=== PATIENT | male | born 1975 | race Two or more races ===

== ENCOUNTER 2019-01-16 21:29 | Emergency (ER) | payer SELFPAY ==
[~2019-01-16] VITALS: Ht 182.9 cm; Wt 89.8 kg
[~2019-01-16 21:29] MED LIST: NKMED; NORCO 5-325 TA1 EACH PO
[2019-01-16 21:55] VITALS: BP 133/77
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
[2019-01-16] MEDS ORDERED: IBUPROFEN600 MG ORAL (22:13)
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
--- NOTE | 2019-01-16 22:56 | NUR ---
ED Nurse Note: Pain score now 2 pain improved following analgesic.
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
--- NOTE | 2019-01-16 23:14 | NUR ---
ER DISCHARGE NOTE: Patient is cleared to be discharged per ERMD, pt is aox4, on room air, with stable vital signs. pt was given dc and prescription instructions, pt was able to verbalize understanding, pt id band removed without complications. pt is able to ambulate with steady gait. pt took all belongings.
[2019-01-16 23:15] VITALS: BP 133/77
== END 2019-01-16 23:16 | disposition home or self-care (01) ==
LOC: EMR 22:30
DX: S30.1XXA Contusion of abdominal wall, initial encounter (principal); V03.90XA Pedestrian on foot injured in collision with car, pick-up truck or van, unspecified whether traffic or nontraffic accident, initial encounter; Y92.481 Parking lot as the place of occurrence of the external cause
CPT/HCPCS: 74176; 99284